=== PATIENT | male | born 1950 | race Hispanic/Latino ===

== ENCOUNTER 2019-01-05 15:56 | Outpatient (CLI) | payer MEDICARE, BC ==
--- NOTE | 2019-01-05 18:11 | RAD ---
LEFT FOREARM TWO VIEWS: History: Fall. Pain. Comparison: None. FINDINGS: There are calcified bodies along the volar aspect of the wrist, incompletely evaluated on this examin ation. The forearm appears to be intact. IMPRESSION: 1. Intact forearm. 2. Calcified bodies along the volar aspect of the wrist. If warranted, dedicated wrist radiographs re commended. POS: [facility]
== END 2019-01-05 15:57 | disposition home or self-care (01) ==
LOC: SCSRAD 15:56
PROVIDERS: ATTEND Emergency Medicine Emergency Medical Services
DX: M79.632 Pain in left forearm (principal); M25.832 Other specified joint disorders, left wrist